=== PATIENT | female | born 1985 | race Caucasian/White ===

== ENCOUNTER 2016-08-21 09:00 | Day surgery (SDC) | payer OTHER ==
--- NOTE | 2016-08-21 04:04 | HISTORY AND PHYSICAL ---
ADMITTED: 08/21/2016 HISTORY OF PRESENT ILLNESS: The patient is a 31-year-old female who underwent an ORIF of a medial malleolar fracture of her left ankle on 08/14/2015, carried out by Dr. Adams. She subsequently continues to reinjure the left ankle. It is painful and weak and unstable. She states the ankle swells, states she would like to have it surgically corrected and tightened up. She states she is also getting some numbness on the outside of her left foot secondarily to the ankle injury. MEDICAL/SURGICAL HISTORY: Includes a history of MS a closed medial malleolar fracture and a previously closed talar fracture, which occurred on 03/26/2015. Surgical history: Ovarian cystectomy in 2002, total hysterectomy, appendectomy, laminectomy. PRIMARY CARE PROVIDER: [facility]. MEDICATIONS: 1. Morphine extended release 30 mg tablet 1 by mouth daily. 2. Morphine extended release 60 mg tablet 1 by mouth q.12 hours. 3. Percocet 10 mg tablet/325 one to 2 tablets q.4-6 hours as needed for pain. 4. Trexall 7.5 mg tablet 1 by mouth every week. 5. Gabapentin 600 mg 1 by mouth t.i.d. ALLERGIES: 1. ERGOTAMINE TARTRATE. 2. CALCIUM CARBONATE. 3. CALCIUM PHOSPHATE. 4. PROMETHAZINE. 6. PROCHLORPERAZINE MALEATE. 7. -------. 8. ALL TRIPTANS 5-HT1 ANTIMIGRAINE AGENTS. 9. DHEA. 10. CAFFEINE. 11. CAFERGOT. SOCIAL HISTORY: She is partnered. Does not smoke nor drink. Employed fulltime. FAMILY HISTORY: Hypertension. REVIEW OF SYSTEMS: Ten point review of system, positive for a grand mal seizure in 1993. PHYSICAL EXAMINATION: GENERAL: The patient is alert and oriented x3. HEENT: PERRLA. Normocephalic. HEART: Regular rate and rhythm, S1 and S2. No murmurs or gallops. LUNGS: Respirations clear to auscultation. No wheezing, rhonchi, or rales. ABDOMEN: Soft, tender, nondistended. No palpable masses. LOWER EXTREMITY: Vascular: DP and PT pulses are palpable. Subpapillary venous plexus capillary refill within normal limits. NEUROLOGIC: Deep tendon reflexes and epicritic sensations were within normal limits. There is a healed linear incision over the medial malleolus. Positive anterior drawer sign, crepitus within the anterolateral aspect of the left ankle. LAB/IMAGING: Imaging revealed the hardware in place, narrowing of the lateral mortise and diastasis seen at the syndesmosis under a stress fluoroscopy scan. IMPRESSION: 1. Post-traumatic arthritis, left ankle 2. Chronic ankle instability PLAN: The patient has consented for an ankle arthroscopy with debridement and a lateral ankle stabilization. The patient is well aware of the planned procedure. The date of procedure is at [place] on 08/21/2016. No contraindications to surgery at this time.
[~2016-08-21 09:00] MED LIST: FLAX SEED OIL1000 MG PO; MORPHINE SULFAT30 M2 PO; MORPHINE SULFAT60 M2 PO; MS CONTIN30 MG PO; NEURONTIN100 MG PO; NEURONTIN300 MG PO; PREDNISONE1 MG PO; VICODIN HP1 TA1 PO; VITAMIN C500 M1 PO; VITAMIN D-31000 UNIT PO
[2016-08-21] MEDS ORDERED: HYDROMORPHONE HC2 MG PO (12:15)
--- NOTE | 2016-08-21 12:16 | Provider's Discharge Care Plan ---
Problem, Goal, Plan Problem List 1. Sprain of anterior talofibular ligament of left ankle Goals: Improve function Instructions: Follow up as directed
--- NOTE | 2016-08-21 12:16 | Provider's Discharge Care Plan ---
Problem, Goal, Plan Problem List 1. Sprain of anterior talofibular ligament of left ankle Goals: Improve function Instructions: Follow up as directed
--- NOTE | 2016-08-21 13:10 | OPERATIVE REPORT ---
DATE OF SURGERY: 08/21/2016 SURGEON: Nilo Mccabe DPM PREOPERATIVE DIAGNOSES: 1. Ankle instability, left ankle POSTOPERATIVE DIAGNOSES: 1. Ankle instability and osteochondral lesion, left ankle PROCEDURES PERFORMED: 1. Ankle arthroscopy with debridement 2. Ankle stabilization with an Arthrex internal brace. HEMOSTASIS: Achieved by pneumatic thigh tourniquet inflated to 300 mmHg pressure. TOURNIQUET TIME: Total tourniquet time 75 minutes. MATERIALS: Used 3-0 and 4-0 Polysorb, 4-0 Surgipro and one Arthrex internal brace. INJECTABLES: Injected 25 mL of 0.25% bupivacaine with epinephrine 1:200,000. COMPLICATIONS: None. CONDITION: The patient tolerated anesthesia and procedure well. INDICATIONS: The patient is a pleasant 31-year-old female who underwent an ORIF of a medial malleolar fracture on 08/14/[address] Adams. Subsequently has developed posttraumatic arthritis and ankle instability. Complains of ankle pain, instability and swelling. She has elected to proceed with surgical intervention. There are no contraindications to surgery at this time. SURGICAL TECHNIQUE: The patient was brought to the operating room and placed on the table in the supine position. At this time, general anesthetic via intubation was administered. A pneumatic tourniquet was then placed above the left knee. The left lower extremity was prepped and draped in normal sterile fashion. An intraoperative surgical time- out was carried out with proper verification of the consent form, proper limb verified and confirmed, as well as administration of intravenous 1 g of cefazolin. At this time, an Esmarch bandage was then utilized to exsanguinate the limb, the tourniquet was then inflated. Attention was turned to procedure #1, ankle arthroscopy with debridement. At this time, the leg was placed in a sterile leg estrada and an Arthrex ankle distractor was applied. The ankle joint was distracted. A lateral portal was made on the anterolateral gutter of the left ankle. It was deepened by a portal dissection. At this time, the arthroscope was introduced and noted to have hemorrhagic synovitis as well as evidence of what appeared to be an osteochondral lesion on the anterolateral talar dome. A corresponding portal was made medially. At this time, a small joint shaver was then placed and the hemorrhagic synovium, which was seen posterior and medially as well as the osteochondral lesion was then shaved down to a solid surface. Probe was utilized revealed the surrounding articulating surface was intact with no vulnerabilities noted. Approximately 3000 liters of lactated Ringer's were placed through the joint. The shaver and scope were removed. The portals were then reapproximated with 4-0 Surgipro. Attention was then directed to procedure #2, ankle stabilization. At this time, a linear incision was made just medial to the anterior border of the lateral malleolus. It was extended down just to subcutaneous tissue and fascia. A [place] elevator was then utilized to free up the periosteum of the distal fibula. A guidewire was then driven obliquely on the anterolateral aspect of the distal fibula oriented towards the medial malleolus, verified under fluoroscopy for proper placement. A 2.7 drill was then utilized. It was tapped accordingly. Then a SwiveLock with #2 FiberTape inserted. Dissection was then carried anterior and medially following the course of the anterior talofibular ligament, which was distended but intact. The guidewire was then driven into the body of the talus and oriented 45 degrees obliquely towards the posterior aspect of the medial malleolus, verified under fluoroscopy for proper placement. A 2.7 hole was drilled, and then followed up with a 3.4 and tapped accordingly. The foot held in a neutral position, the additional SwiveLock and the FiberTape was inserted into that and placed under proper tension. Placed through a range of motion with inversion and eversion with the anatomical slack of the FiberTape overriding the anterior talofibular ligament was in excellent position to provide the stability needed. The area was flushed. Periosteum and capsule was then plicated in a [id number] fashion and subcutaneous with 4-0 and skin edges were then reapproximated with 4-0 Surgipro. The area was locally anesthetized with the aforementioned local anesthetic. A light compressive dressing was applied. The tourniquet was released with reactive hyperemia and good digital perfusion. The patient tolerated anesthesia and procedure well and left the room with vital signs stable. While in recovery, written instructions of touchdown weightbearing with the aid of a fracture boot. Prognosis is guarded. She will be discharged home in stable condition.
== END 2016-08-21 15:58 | disposition home or self-care (01) ==
LOC: OR SRH 09:00 → SCU SRH 09:03
PROVIDERS: Podiatrist
PROC: 0SBG4ZZ Excision of Left Ankle Joint, Percutaneous Endoscopic Approach (ICD-10-PCS; principal; 2016-08-21 10:45)
PROC: 0MUR0JZ Supplement Left Ankle Bursa and Ligament with Synthetic Substitute, Open Approach (ICD-10-PCS; principal; 2016-08-21 10:45)
DX: M25.372 Other instability, left ankle (principal); M19.172 Post-traumatic osteoarthritis, left ankle and foot; S82.52XS Displaced fracture of medial malleolus of left tibia, sequela; X58.XXXS Exposure to other specified factors, sequela; G35 Multiple sclerosis
CPT/HCPCS: 29229; 29240; 50004; 60001; 70002; 80102; 80144; 80212; 80360; 82879; 83413; 83612; 83860; 84038; 84522; 90074; 90100; 95059

== ENCOUNTER 2016-09-05 17:43 | Emergency (ER) | payer OTHER ==
[~2016-09-05 17:43] MED LIST changes: +HYDROMORPHONE HC2 MG PO
--- NOTE | 2016-09-05 18:06 | ED CLINICAL REPORT ---
Clinical Report - Physicians/Mid Levels [facility] [address] [place] [address] 09/05/2016 17:44 Patient: LUCILLE MAGALLANES Time Seen: 1820. Arrived- By private vehicle. HISTORY OF PRESENT ILLNESS Chief Complaint: COUGH, SORE THROAT, FEVER, CHILLS, MUSCLE ACHES and "FLU". This started 4 days CLINICAL LIAISON and is still present. The illness is described as mild. No cough, sputum production, fever, muscle aches or chills. (sx for 4 days, controlled temp with tylneol/ motrin. pt with nausea/ no emesis. No diarrhea. No recent travel. NO abx. NO neck pain/ no headache). Additional history - The patient has had contact with a sick individual. REVIEW OF SYSTEMS No headache, eye discomfort, abdominal pain, hay fever or pedal edema. No calf pain. All systems otherwise negative, except as recorded above. PAST HISTORY Problems: Vomiting. Head Injury. Headache. Skull Fracture. Concussion. Sprain. Ankle Fracture. Neurological Disease. Tension-Type Headache. Constipation. Gastroenteritis. Acute Pain. Fall. Contusion. Bronchitis. URI. Cervical Strain. Myofascial Strain. Tetanus Status. Chiari malformation type I. Abdominal Pain. Immunizations. Nephrolithiasis. UTI - Urinary Tract Infection. LNMP - Last Normal Menstrual Period. Rheumatoid Arthritis. Multiple Sclerosis. Additional Surgeries: Ankle. Appendectomy. Back Surgery. Hysterectomy. Oophorectomy. Ovarian cystectomy. Medications: Percocet Oral. Gabapentin Oral. Methotrexate Oral. Morphine Sulfate ER Oral. PredniSONE Oral. Allergies: Cafergot. Compazine. DHE. Imitrex. Topamax. SOCIAL HISTORY No drug use. ADDITIONAL NOTES The nursing notes have been reviewed. PHYSICAL EXAM Vital Signs: 09/05/2016 17:55 BP: 109/64. HR: 74. RR: 18. O2 saturation: 100%. Temp: 98.8 F. Pain level now: 5/10. Appearance: Alert. Eyes: Eyes normal inspection. ENT: Ears normal. Nose normal. Pharynx normal. No tonsillar exudate. Neck: Normal inspection. No lymphadenopathy. CVS: Normal heart rate and rhythm. Heart sounds normal. Respiratory: No respiratory distress. Breath sounds normal. Back: Normal inspection. Skin: Skin warm. Normal skin color. Neuro: Oriented X 3. PROGRESS AND PROCEDURES Course of Care: non septic female, afebrile, normacardic, with negative exam. fever controlled at home with motrin/ tylneol to continue the same. Lungs clear. No meningeal signs. Euvolimic. Stable. No foreign travel. Patient is stable. The patient's symptoms are unchanged. Patient/family counseled. Disposition: Discharged. Condition: good. CLINICAL IMPRESSION Acute viral syndrome INSTRUCTIONS Do not work for three days. Drink plenty of fluids. Prescription Medications: Zofran (orally disintegrating tablets) 4 mg: take 1 orally every 6 hours for 3 days as needed for nausea. Dispense ten (10). No refill. Substitution is permissible. Motrin 600 mg tablets: take 1 tablet orally every 8 hours for 3 days, as needed for pain. Dispense ten (10). No refill. Substitution is permissible. OTC Medications: Tylenol ER 650 mg (available over the counter): take 1 orally every 8 hours for 3 days, as needed for fever. Dispense ten (10). No refill. Substitution is permissible. Follow-up: Follow up with your doctor in three days. Understanding of the discharge instructions verbalized. (Electronically signed by Gabrielle Maher P.A.-C 09/05/2016 19:22)
--- NOTE | 2016-09-05 18:06 | ED NURSING NOTES ---
Clinical Report - Nurses [facility] [address] [place] [address] 09/05/2016 17:44 Patient: LUCILLE MAGALLANES TRIAGE Triage time 17:56. Acuity: LEVEL 3. Chief Complaint: FEVER. ANNABELLE COMA SCORE: Annabelle Coma Scale: 15- eyes open spontaneously (4); best verbal response- oriented x 4 (5); best motor response- obeys commands (6). --18:03 Shadia San R.N. 17:55 09/05/16. BP: 109/64. HR: 74. RR: 18. O2 saturation: 100%. Temp: 98.8 F (oral). Pain level now: 5/10. --18:03 Shadia San R.N. Weight: 58.9 kg. Height/Length: 65 inches. BMI: 21.6. --18:02 Shadia San R.N. Medications Gabapentin Oral. Methotrexate Oral. Morphine Sulfate ER Oral. PredniSONE Oral. --17:57 Shadia San R.N. Percocet Oral. --17:57 Shadia San R.N. Medication/allergy information source: the patient. --18:03 Shadia San R.N. Allergies Cafergot. Compazine. DHE. Imitrex. --17:57 Shadia San R.N. Topamax. --17:57 Shadia San R.N. History Arrived by private vehicle. Historian: patient. Unaccompanied. Primary physician (marianne Mccabe). Onset. (about 4 days). She has had a cough. 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 SOCIAL HX: Smoker- current status unknown (no). No alcohol use or drug use. FALL RISK ASSESSMENT: Fall risk assessment completed. No fall risk identified. FUNCTIONAL ASSESSMENT: Functional assessment: no impairments noted. LEARNING NEEDS ASSESSMENT: The learning needs assessment revealed no barriers. --18:03 Shadia San R.N. PROBLEMS: Vomiting. Head Injury. Headache. Skull Fracture. Concussion. Sprain. Ankle Fracture. Neurological Disease. Tension-Type Headache. Constipation. Gastroenteritis. Acute Pain. Fall. Contusion. Bronchitis. URI. Cervical Strain. Myofascial Strain. Tetanus Status. Chiari malformation type I. Abdominal Pain. Immunizations. Nephrolithiasis. UTI - Urinary Tract Infection. LNMP - Last Normal Menstrual Period. Rheumatoid Arthritis. Multiple Sclerosis. --17:58 Shadia San R.N. Skull Fracture [RuleOut]. Concussion [RuleOut]. --17:58 Shadia San R.N. ADDITIONAL SURGERIES: Ankle. Appendectomy. Back Surgery. Hysterectomy. Oophorectomy. Ovarian cystectomy. --17:58 Shadia San R.N. Assessment GENERAL / NEURO / PSYCH: Alert. Oriented X 4. Appears in no acute distress. Patient appears calm and cooperative. RESPIRATORY: Respirations not labored. SKIN: Skin is warm and dry. --18:03 Shadia San R.N. Interventions ID and allergy band on patient. To treatment room. --18:03 Shadia Sna R.N. PHYSICAL ASSESSMENT 18:04 09/05/16. Ambulatory to room. GENERAL / NEURO / PSYCH: The patient is awake and alert, is oriented and cooperative and appears uncomfortable. She has good eye contact. RESPIRATORY: Respirations not labored. Cough. SKIN: Skin is warm and dry. --18:04 Shadia San R.N. NURSING PROGRESS NOTES 18:04 09/05/16. Head of bed elevated. Call light placed in reach. Side rails up x 1. Bed placed in lowest position. Brakes of bed on. --18:04 Shadia San R.N. 18:15. The patient is calm. Overall patient status is the same- she states feels the same. GENERAL / NEURO / PSYCH: Alert. Oriented X 4. RESPIRATORY: No respiratory distress. SKIN: Skin is warm and dry. --18:21 Shadia San R.N. DISPOSITION / DISCHARGE Departure time: 1814. Condition at departure: stable. No learning barriers present. Discharge instructions provided and reviewed with the patient. Reviewed medication(s). Prescription(s) given to the patient. Work note given. Patient verbalized understanding. Written instructions provided in Yakut. The patient was discharged home and unaccompanied at time of discharge. She left the Emergency Department ambulatory and via private vehicle. FALL RISK ASSESSMENT: Fall risk assessment completed. No fall risk identified. --18:21 Shadia San R.N. 18:19 09/05/16. Pain level now: 5/10. Additional comments: here under an hour. --18:21 Shadia San R.N. Locked/Released at 09/05/2016 18:22 by Shadia San R.N.
--- NOTE | 2016-09-05 18:06 | ED CLINICAL REPORT ---
Clinical Report - Physicians/Mid Levels [facility] [address] [place] [address] 09/05/2016 17:44 Patient: LUCILLE MAGALLANES Time Seen: 1820. Arrived- By private vehicle. HISTORY OF PRESENT ILLNESS Chief Complaint: COUGH, SORE THROAT, FEVER, CHILLS, MUSCLE ACHES and "FLU". 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 The illness is described as mild. No cough, sputum production, fever, muscle aches or chills. (sx for 4 days, controlled temp with tylneol/ motrin. pt with nausea/ no emesis. No diarrhea. No recent travel. NO abx. NO neck pain/ no headache). Additional history - The patient has had contact with a sick individual. REVIEW OF SYSTEMS No headache, eye discomfort, abdominal pain, hay fever or pedal edema. No calf pain. All systems otherwise negative, except as recorded above. PAST HISTORY Problems: Vomiting. Head Injury. Headache. Skull Fracture. Concussion. Sprain. Ankle Fracture. Neurological Disease. Tension-Type Headache. Constipation. Gastroenteritis. Acute Pain. Fall. Contusion. Bronchitis. URI. Cervical Strain. Myofascial Strain. Tetanus Status. Chiari malformation type I. Abdominal Pain. Immunizations. Nephrolithiasis. UTI - Urinary Tract Infection. LNMP - Last Normal Menstrual Period. Rheumatoid Arthritis. Multiple Sclerosis. Additional Surgeries: Ankle. Appendectomy. Back Surgery. Hysterectomy. Oophorectomy. Ovarian cystectomy. Medications: Percocet Oral. Gabapentin Oral. Methotrexate Oral. Morphine Sulfate ER Oral. PredniSONE Oral. Allergies: Cafergot. Compazine. DHE. Imitrex. Topamax. SOCIAL HISTORY No drug use. ADDITIONAL NOTES The nursing notes have been reviewed. PHYSICAL EXAM Vital Signs: 09/05/2016 17:55 BP: 109/64. HR: 74. RR: 18. O2 saturation: 100%. Temp: 98.8 F. Pain level now: 5/10. Appearance: Alert. Eyes: Eyes normal inspection. ENT: Ears normal. Nose normal. Pharynx normal. No tonsillar exudate. Neck: Normal inspection. No lymphadenopathy. CVS: Normal heart rate and rhythm. Heart sounds normal. Respiratory: No respiratory distress. Breath sounds normal. Back: Normal inspection. Skin: Skin warm. Normal skin color. Neuro: Oriented X 3. PROGRESS AND PROCEDURES Course of Care: non septic female, afebrile, normacardic, with negative exam. fever controlled at home with motrin/ tylneol to continue the same. Lungs clear. No meningeal signs. Euvolimic. Stable. No foreign travel. Patient is stable. The patient's symptoms are unchanged. Patient/family counseled. Disposition: Discharged. Condition: good. CLINICAL IMPRESSION Acute viral syndrome INSTRUCTIONS Do not work for three days. Drink plenty of fluids. Prescription Medications: Zofran (orally disintegrating tablets) 4 mg: take 1 orally every 6 hours for 3 days as needed for nausea. Dispense ten (10). No refill. Substitution is permissible. Motrin 600 mg tablets: take 1 tablet orally every 8 hours for 3 days, as needed for pain. Dispense ten (10). No refill. Substitution is permissible. OTC Medications: Tylenol ER 650 mg (available over the counter): take 1 orally every 8 hours for 3 days, as needed for fever. Dispense ten (10). No refill. Substitution is permissible. Follow-up: Follow up with your doctor in three days. Understanding of the discharge instructions verbalized. (Electronically signed by Gabrielle Maher P.A.-C 09/05/2016 19:22)
--- NOTE | 2016-09-05 18:06 | ED NURSING NOTES ---
Clinical Report - Nurses [facility] [address] [place] [address] 09/05/2016 17:44 Patient: LUCILLE MAGALLANES TRIAGE Triage time 17:56. Acuity: LEVEL 3. Chief Complaint: FEVER. ANNABELLE COMA SCORE: Annabelle Coma Scale: 15- eyes open spontaneously (4); best verbal response- oriented x 4 (5); best motor response- obeys commands (6). --18:03 Shadia San R.N. 17:55 09/05/16. BP: 109/64. HR: 74. RR: 18. O2 saturation: 100%. Temp: 98.8 F (oral). Pain level now: 5/10. --18:03 Shadia San R.N. Weight: 58.9 kg. Height/Length: 65 inches. BMI: 21.6. --18:02 Shadia San R.N. Medications Gabapentin Oral. Methotrexate Oral. Morphine Sulfate ER Oral. PredniSONE Oral. --17:57 Shadia San R.N. Percocet Oral. --17:57 Shadia San R.N. Medication/allergy information source: the patient. --18:03 Shadia San R.N. Allergies Cafergot. Compazine. DHE. Imitrex. --17:57 Shadia San R.N. Topamax. --17:57 Shadia San R.N. History Arrived by private vehicle. Historian: patient. Unaccompanied. Primary physician (marianne Mccabe). Onset. (about 4 days). She has had a cough. 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 SOCIAL HX: Smoker- current status unknown (no). No alcohol use or drug use. FALL RISK ASSESSMENT: Fall risk assessment completed. No fall risk identified. FUNCTIONAL ASSESSMENT: Functional assessment: no impairments noted. LEARNING NEEDS ASSESSMENT: The learning needs assessment revealed no barriers. --18:03 Shadia San R.N. PROBLEMS: Vomiting. Head Injury. Headache. Skull Fracture. Concussion. Sprain. Ankle Fracture. Neurological Disease. Tension-Type Headache. Constipation. Gastroenteritis. Acute Pain. Fall. Contusion. Bronchitis. URI. Cervical Strain. Myofascial Strain. Tetanus Status. Chiari malformation type I. Abdominal Pain. Immunizations. Nephrolithiasis. UTI - Urinary Tract Infection. LNMP - Last Normal Menstrual Period. Rheumatoid Arthritis. Multiple Sclerosis. --17:58 Shadia San R.N. Skull Fracture [RuleOut]. Concussion [RuleOut]. --17:58 Shadia San R.N. ADDITIONAL SURGERIES: Ankle. Appendectomy. Back Surgery. Hysterectomy. Oophorectomy. Ovarian cystectomy. --17:58 Shadia San R.N. Assessment GENERAL / NEURO / PSYCH: Alert. Oriented X 4. Appears in no acute distress. Patient appears calm and cooperative. RESPIRATORY: Respirations not labored. SKIN: Skin is warm and dry. --18:03 Shdaia San R.N. Interventions ID and allergy band on patient. To treatment room. --18:03 Shadia San R.N. PHYSICAL ASSESSMENT 18:04 09/05/16. Ambulatory to room. GENERAL / NEURO / PSYCH: The patient is awake and alert, is oriented and cooperative and appears uncomfortable. She has good eye contact. RESPIRATORY: Respirations not labored. Cough. SKIN: Skin is warm and dry. --18:04 Shadia San R.N. NURSING PROGRESS NOTES 18:04 09/05/16. Head of bed elevated. Call light placed in reach. Side rails up x 1. Bed placed in lowest position. Brakes of bed on. --18:04 Shadia San R.N. 18:15. The patient is calm. Overall patient status is the same- she states feels the same. GENERAL / NEURO / PSYCH: Alert. Oriented X 4. RESPIRATORY: No respiratory distress. SKIN: Skin is warm and dry. --18:21 Shadia San R.N. DISPOSITION / DISCHARGE Departure time: 1814. Condition at departure: stable. No learning barriers present. Discharge instructions provided and reviewed with the patient. Reviewed medication(s). Prescription(s) given to the patient. Work note given. Patient verbalized understanding. Written instructions provided in Sami. The patient was discharged home and unaccompanied at time of discharge. She left the Emergency Department ambulatory and via private vehicle. FALL RISK ASSESSMENT: Fall risk assessment completed. No fall risk identified. --18:21 Shadia San R.N. 18:19 09/05/16. Pain level now: 5/10. Additional comments: here under an hour. --18:21 Shadia San R.N. Locked/Released at 09/05/2016 18:22 by Shadia San R.N.
--- NOTE | 2016-09-05 19:22 | ED MAR SUMMARY ---
..... Medication Administration Record [facility] [address], [place] [id number] Patient: LUCILLE MAGALLANES Visit ID: [id number] 31y, F Weight: 58.9 kg Height/Length: 65 in BMI: 21.6 ALLERGIES: Cafergot, Compazine, DHE, Imitrex, Topamax
--- NOTE | 2016-09-05 19:22 | ED MED RECONCILIATION SUMMARY ---
Patient: LUCILLE MAGALLANES Medication Reconciliation Report [facility] VisitID: [id number] [place] [address] 31y, F Registration Date/Time: 09/05/2016 Weight: 58.9 kg Height/Length: 65 in. BMI: 21.6 ALLERGIES: Cafergot, Compazine, DHE, Imitrex, Topamax The patient's Home Medications are listed below: THE FOLLOWING MEDICATIONS NEED TO BE RECONCILED: Gabapentin Oral Methotrexate Oral Morphine Sulfate ER Oral Percocet Oral PredniSONE Oral The source(s) of the original Home Medication information: patient The following Medications were given to the patient in the Emergency Department: None. The following Medications were prescribed to the patient: Zofran (orally disintegrating tablets) 4 mg: take 1 orally every 6 hours for 3 days as needed for nausea. Dispense ten (10). No refill. Substitution is permissible. -- Gabrielle Maher, P.A.-Sarahy Motrin 600 mg tablets: take 1 tablet orally every 8 hours for 3 days, as needed for pain. Dispense ten (10). No refill. Substitution is permissible. -- Gabrielle Maher, P.A.-Sarahy Tylenol ER 650 mg (available over the counter): take 1 orally every 8 hours for 3 days, as needed for fever. Dispense ten (10). No refill. Substitution is permissible. -- Gabrielle Maher, P.A.-C
--- NOTE | 2016-09-05 19:22 | ED MAR SUMMARY ---
..... Medication Administration Record [facility] [address] [place], [place] [id number] Patient: LUCILLE MAGALLANES Visit ID: [id number] 31y, F Weight: 58.9 kg Height/Length: 65 in BMI: 21.6 ALLERGIES: Cafergot, Compazine, DHE, Imitrex, Topamax
--- NOTE | 2016-09-05 19:22 | ED DISCHARGE INSTRUCTIONS ---
Patient: LUCILLE MAGALLANES General Instructions [facility] VisitID: [id number] [place] [address] 31y, F Registration Date/Time: 09/05/2016 Acute viral syndrome INSTRUCTIONS Do not work for three days. Drink plenty of fluids. Prescription Medications: Zofran (orally disintegrating tablets) 4 mg: take 1 orally every 6 hours for 3 days as needed for nausea. Dispense ten (10). No refill. Substitution is permissible. Motrin 600 mg tablets: take 1 tablet orally every 8 hours for 3 days, as needed for pain. Dispense ten (10). No refill. Substitution is permissible. OTC Medications: Tylenol ER 650 mg (available over the counter): take 1 orally every 8 hours for 3 days, as needed for fever. Dispense ten (10). No refill. Substitution is permissible. Follow-up: Follow up with your doctor in three days. Understanding of the discharge instructions verbalized. ADDITIONAL INFORMATION Viral Syndrome (Adult) A viral illness may cause a number of symptoms. The symptoms depend on the part of the body that the virus affects. If it settles in the nose, throat, and lungs, it may cause cough, sore throat, congestion, and sometimes headache. If it settles in the stomach and intestinal tract, it may cause vomiting and diarrhea. Sometimes it causes vague symptoms like "aching all over," feeling tired, loss of appetite, or fever. A viral illness usually lasts1 to 2 weeks, but sometimes it lasts longer. In some cases, a more serious infection can look like a viral syndrome in the first few days of the illness. You may need anotherexam and additional teststo know the difference.Watch for the warning signs listed below. Home care Follow these guidelines for taking care of yourself at home: If symptoms are severe, rest at home for the first 2 to 3 days. Stay away from cigarette smoke - both your smoke and the smoke from others. You may useacetaminophen or ibuprofen for fever, muscle aching, and headache, unless another medicine was prescribed for this.If you have chronic liver or kidney disease or ever had a stomach ulcer or GI bleeding, talk with your doctor before using these medicinesNo one who is younger than 18 and ill with a fever should take aspirin. It may cause severe liver damage. Your appetite may be poor, so a light diet is fine. Avoid dehydration by drinking 8 to 12 8-ounce glasses of fluids each day. This may include water; orange juice; lemonade; apple, grape, and cranberry juice; clear fruit drinks; electrolyte replacement and sports drinks; and decaffeinated teas and coffee. If you have been diagnosed with a kidney disease, ask your doctor how much and what types of fluids you should drink to prevent dehydration. If you have kidney disease, drinking too much fluid can cause it build up in the your body and be dangerous to your health. Nfek-szv-vomafit remedies won't shorten the length of the illness but may be helpful forcough, sore throat; and nasal and sinus congestion. Don't use decongestants if you have high blood pressure. Follow-up care Follow up with your health care provider if you do not improve over the next week. When to seek medical care Get prompt medical attention if any of these occur: Cough with lots of colored sputum (mucus) or blood in your sputum Chest pain, shortness of breath, wheezing, or difficulty breathing Severe headache; face, neck, or ear pain Severe, constant pain in the lower right side of your belly (abdominal) Continued vomiting (cant keep liquids down) Frequent diarrhea (more than 5 times a day); blood (red or black color) or mucus in diarrhea Feeling weak, dizzy, or like you are going to faint Extreme thirst Fever of 100.4 F (38 C) oral or higher, not better with fever medication Convulsion Ondansetron Oral disintegrating tablet What is this medicine? ONDANSETRON (on JOEY se zora) is used to treat nausea and vomiting caused by chemotherapy. It is also used to prevent or treat nausea and vomiting after surgery. How should I use this medicine? These tablets are made to dissolve in the mouth. Do not try to push the tablet through the foil backing. With dry hands, peel away the foil backing and gently remove the tablet. Place the tablet in the mouth and allow it to dissolve, then swallow. While you may take these tablets with water, it is not necessary to do so. Talk to your marketing account executive regarding the use of this medicine in children. Special care may be needed. What side effects may I notice from receiving this medicine? Side effects that you should report to your doctor or health healthcare consulting manager as soon as possible: allergic reactions like skin rash, itching or hives, swelling of the face, lips, or tongue breathing problems dizziness fast or irregular heartbeat feeling faint or lightheaded, falls fever and chills swelling of the hands and feet tightness in the chest Side effects that usually do not require medical attention (report to your doctor or health healthcare consulting manager if they continue or are bothersome): constipation or diarrhea headache What may interact with this medicine? Do not take this medicine with any of the following medications: -apomorphine -cisapride -dofetilide -dronedarone -pimozide -thioridazine -ziprasidone This medicine may also interact with the following medications: -carbamazepine -phenytoin -rifampicin -tramadol -other medicines that prolong the QT interval (cause an abnormal heart rhythm) What if I miss a dose? If you miss a dose, take it as soon as you can. If it is almost time for your next dose, take only that dose. Do not take double or extra doses. Where should I keep my medicine? Keep out of the reach of children. Store between 2 and 30 degrees C (36 and 86 degrees F). Throw away any unused medicine after the expiration date. What should I tell my health care provider before I take this medicine? They need to know if you have any of these conditions: heart disease history of irregular heartbeat liver disease low levels of magnesium or potassium in the blood an unusual or allergic reaction to ondansetron, granisetron, other medicines, foods, dyes, or preservatives or trying to get breast-feeding What should I watch for while using this medicine? Check with your doctor or health healthcare consulting manager as soon as you can if you have any sign of an allergic reaction. Ibuprofen Oral tablet What is this medicine? IBUPROFEN (eye BYOO proe fen) is a non-steroidal anti-inflammatory drug (NSAID). It is used for dental pain, fever, headaches or migraines, osteoarthritis, rheumatoid arthritis, or painful monthly periods. It can also relieve minor aches and pains caused by a cold, flu, or sore throat. How should I use this medicine? Take this medicine by mouth with a glass of water. Follow the directions on the prescription label. Take this medicine with food if your stomach gets upset. Try to not lie down for at least 10 minutes after you take the medicine. Take your medicine at regular intervals. Do not take your medicine more often than directed. A special MedGuide will be given to you by the pharmacist with each prescription and refill. Be sure to read this information carefully each time. Talk to your marketing account executive regarding the use of this medicine in children. Special care may be needed. What side effects may I notice from receiving this medicine? Side effects that you should report to your doctor or health healthcare consulting manager as soon as possible: allergic reactions like skin rash, itching or hives, swelling of the face, lips, or tongue black or bloody stools, blood in the urine or in vomit breathing problems changes in vision chest pain general ill feeling or flu-like symptoms nausea or vomiting redness, blistering, peeling or loosening of the skin, including inside the mouth slurred speech or weakness on one side of the body stomach pain unexplained weight gain or swelling unusually weak or tired yellowing of eyes or skin Side effects that usually do not require medical attention (report to your doctor or health healthcare consulting manager if they continue or are bothersome): constipation or diarrhea dizziness gas or heartburn stomach upset What may interact with this medicine? Do not take this medicine with any of the following medications: cidofovir ketorolac methotrexate pemetrexed This medicine may also interact with the following medications: alcohol aspirin diuretics lithium other drugs for inflammation like prednisone warfarin What if I miss a dose? If you miss a dose, take it as soon as you can. If it is almost time for your next dose, take only that dose. Do not take double or extra doses. Where should I keep my medicine? Keep out of the reach of children. Store at room temperature between 15 and 30 degrees C (59 and 86 degrees F). Keep container tightly closed. Throw away any unused medicine after the expiration date. What should I tell my health care provider before I take this medicine? They need to know if you have any of these conditions: asthma cigarette smoker drink more than 3 alcohol containing drinks a day heart disease or circulation problems such as heart failure or leg edema (fluid retention) high blood pressure kidney disease liver disease stomach bleeding or ulcers an unusual or allergic reaction to ibuprofen, aspirin, other NSAIDS, other medicines, foods, dyes, or preservatives or trying to get breast-feeding What should I watch for while using this medicine? Tell your doctor or healthcare professional if your symptoms do not start to get better or if they get worse. This medicine does not prevent heart attack or stroke. In fact, this medicine may increase the chance of a heart attack or stroke. The chance may increase with longer use of this medicine and in people who have heart disease. If you take aspirin to prevent heart attack or stroke, talk with your doctor or health healthcare consulting manager. Do not take other medicines that contain aspirin, ibuprofen, or naproxen with this medicine. Side effects such as stomach upset, nausea, or ulcers may be more likely to occur. Many medicines available without a prescription should not be taken with this medicine. This medicine can cause ulcers and bleeding in the stomach and intestines at any time during treatment. Ulcers and bleeding can happen without warning symptoms and can cause . To reduce your risk, do not smoke cigarettes or drink alcohol while you are taking this medicine. You may get drowsy or dizzy. Do not drive, use machinery, or do anything that needs mental alertness until you know how this medicine affects you. Do not stand or sit up quickly, especially if you are an older patient. This reduces the risk of dizzy or fainting spells. This medicine can cause you to bleed more easily. Try to avoid damage to your teeth and gums when you brush or floss your teeth. Acetaminophen Oral tablet What is this medicine? ACETAMINOPHEN (a set a BRANNON jeferson fen) is a pain reliever. It is used to treat mild pain and fever. How should I use this medicine? Take this medicine by mouth with a glass of water. Follow the directions on the package or prescription label. Take your medicine at regular intervals. Do not take your medicine more often than directed. Talk to your marketing account executive regarding the use of this medicine in children. While this drug may be prescribed for children as young as 6 years of age for selected conditions, precautions do apply. What side effects may I notice from receiving this medicine? Side effects that you should report to your doctor or health healthcare consulting manager as soon as possible: allergic reactions like skin rash, itching or hives, swelling of the face, lips, or tongue breathing problems fever or sore throat redness, blistering, peeling or loosening of the skin, including inside the mouth trouble passing urine or change in the amount of urine unusual bleeding or bruising unusually weak or tired yellowing of the eyes or skin Side effects that usually do not require medical attention (report to your doctor or health healthcare consulting manager if they continue or are bothersome): headache nausea, stomach upset What may interact with this medicine? alcohol imatinib isoniazid other medicines with acetaminophen What if I miss a dose? If you miss a dose, take it as soon as you can. If it is almost time for your next dose, take only that dose. Do not take double or extra doses. Where should I keep my medicine? Keep out of reach of children. Store at room temperature between 20 and 25 degrees C (68 and 77 degrees F). Protect from moisture and heat. Throw away any unused medicine after the expiration date. What should I tell my health care provider before I take this medicine? They need to know if you have any of these conditions: if you frequently drink alcohol containing drinks liver disease an unusual or allergic reaction to acetaminophen, other medicines, foods, dyes or preservatives or trying to get breast-feeding What should I watch for while using this medicine? Tell your doctor or health healthcare consulting manager if the pain lasts more than 10 days (5 days for children), if it gets worse, or if there is a new or different kind of pain. Also, check with your doctor if a fever lasts for more than 3 days. Do not take other medicines that contain acetaminophen with this medicine. Always read labels carefully. If you have questions, ask your doctor or pharmacist. If you take too much acetaminophen get medical help right away. Too much acetaminophen can be very dangerous and cause liver damage. Even if you do not have symptoms, it is important to get help right away. You have been given the following additional information: Viral Syndrome (Adult) Ondansetron Oral disintegrating tablet Ibuprofen Oral tablet Acetaminophen Oral tablet Do not work for three days. (Electronically signed by Gabrielle Maher P.A.-C 09/05/2016 19:22)
--- NOTE | 2016-09-05 19:22 | ED MED RECONCILIATION SUMMARY ---
Patient: LUCILLE MAGALLANES Medication Reconciliation Report [facility] VisitID: [id number] [place] [address] 31y, F Registration Date/Time: 09/05/2016 Weight: 58.9 kg Height/Length: 65 in. BMI: 21.6 ALLERGIES: Cafergot, Compazine, DHE, Imitrex, Topamax The patient's Home Medications are listed below: THE FOLLOWING MEDICATIONS NEED TO BE RECONCILED: Gabapentin Oral Methotrexate Oral Morphine Sulfate ER Oral Percocet Oral PredniSONE Oral The source(s) of the original Home Medication information: patient The following Medications were given to the patient in the Emergency Department: None. The following Medications were prescribed to the patient: Zofran (orally disintegrating tablets) 4 mg: take 1 orally every 6 hours for 3 days as needed for nausea. Dispense ten (10). No refill. Substitution is permissible. -- Gabrielle Maher, P.A.-Sarahy Motrin 600 mg tablets: take 1 tablet orally every 8 hours for 3 days, as needed for pain. Dispense ten (10). No refill. Substitution is permissible. -- Gabrielle Maher, P.A.-Sarahy Tylenol ER 650 mg (available over the counter): take 1 orally every 8 hours for 3 days, as needed for fever. Dispense ten (10). No refill. Substitution is permissible. -- Gabrielle Maher, P.A.-C
== END 2016-09-05 18:15 | disposition home or self-care (01) ==
LOC: ED SRH 17:43
DX: B34.9 Viral infection, unspecified (principal); Z88.5 Allergy status to narcotic agent; Z88.8 Allergy status to other drugs, medicaments and biological substances; Z79.899 Other long term (current) drug therapy